=== PATIENT | female | born 1960 | race Caucasian/White ===

== ENCOUNTER 2021-03-04 14:38 | Emergency (ER) | payer BC, SELFPAY ==
--- NOTE | 2021-03-04 14:45 | DI.US_ITS ---
Exam(s) US LOWER EXTREMITY VENOUS LT EXAM: US LOWER EXTREMITY VENOUS LT CLINICAL HISTORY: pain/ hx of dvt TECHNIQUE: Left lower extremity venous ultrasound performed using grayscale, color-flow, and spectra l Doppler analysis. COMPARISON: No exams were available for comparison FINDINGS: The left common femoral, femoral and popliteal veins demonstrate normal compressibility, augmentation , and color Doppler. The posterior tibial veins are patent. There is nonocclusive thrombus seen in t he proximal greater saphenous vein 1.2 cm from the saphenofemoral junction. This may be nonacute thr ombus. There is occlusive thrombus seen in the medial calf in what appears to be the lesser saphenou s vein. This appears to be acute. There is no evidence of a Mesa cyst. The soft tissues are unrem arkable. IMPRESSION: 1. No DVT. 2. Superficial thrombophlebitis as described above. DATA REPOSITORY:
[2021-03-04 14:46] VITALS: BP 154/58; PULSE 90; RESP 18; TEMP 36.8; O2SAT 98
--- NOTE | 2021-03-04 15:06 | W.ED.GENAD ---
Discharge Plan Disposition Patient Disposition: HOME Condition: Stable Discharge Details Clinical Impression: Superficial thrombophlebitis Primary Care Provider: Marnie Vega ED Provider: Garcia Alejandre Home Meds and New Rx's Prescriptions: No Action omeprazole 20 mg capsule,delayed release(DR/EC) 20 mg PO DAILY RF: 0 Discharge Instructions Additional Instructions: Warm compress with, take ibuprofen 600 mg or a full dose aspirin every 8 hours with food for the next 5 days, warm compresses Repeat ultrasound in 1 week Return with spreading redness, fever, worsening pain Warm compresses 3 times daily for 10 to 20 minutes Should you develop increased swelling, worsening pain, shortness of breath, or if you develop any new or worsening complaints, please return to the emergency room Recheck with your primary care physician in 24 to 48 hours Discharge Data Discharge Date/Time-TO BE ENTERED AT DEPARTURE: 03/04/21 16:52 Medical Decision Making <MARIANELA Nice - Last Filed: 03/05/21 11:57> 60-year-old female, presents concerned of a left leg blood clot, reports increased driving recently. Fortunately we are able to obtain an ultrasound now, tachycardia goes home at 3 PM but able to obtain ultrasound at 2:58 PM. Will go to ultrasound first, if positive will need to evaluate further with laboratory values. Differential includes but not excluded to DVT, cellulitis, phlebitis, low suspicion for abscess given presentation. Patient denies chest pain or shortness of breath. Also denies fever. I received confirmation from cath lab tech that the test is presumptively positive however awaiting official read from radiology for extent of positive findings. Will obtain IV access, CBC, CMP, coags. At time of signout awaiting the official read of ultrasound, laboratory values, final disposition and treatment. Medical Records Medical records reviewed: Yes I reviewed the patient's medical records. <MARIANELA Pruitt - Last Filed: 03/04/21 20:35> Transfer of care from Garcia Alejandre PA-C pending official ultrasound read and diagnostic blood work V rad interpretation shows superficial thrombophlebitis Patient with diagnostic labs do not show acute pathology Patient will take aspirin or ibuprofen 4 times daily for the next 5 days. She has been scheduled for repeat ultrasound in 1 week She is given a threshold to return should she have new or worsening complaints She will apply warm compresses to the affected area Patient discharged home in stable condition with stable vital Return precautions discussed HPI <MARIANELA Nice - Last Filed: 03/05/21 11:57> General Mode of arrival: ambulatory. Date/Time Provider Initiated Documentation: 03/04/21 14:57. Limitations to Documentation: no limitations. Information obtained by: patient. HPI Narrative: This is a 60-year-old female, past medical history of GERD, DVT 7 years ago, not anticoagulated, presenting for pain and swelling of the left lower extremity, concern of DVT. Patient reports that she has been driving to and from [facility] more frequently, noticed this pain and swelling on . Potentially unrelated she states that sometime last week she was diagnosed with cellulitis to her calf placed on antibiotic, redness has gone away but the area still remains slightly firm. Unsure of the name of the antibiotic. Symptoms now are in her posterior-medial thigh. She denies chest pain, shortness of breath, trauma, fever, numbness, tingling, weakness. Upon reviewing her pharmacy, it would appear as though she was on Keflex. Related Data Home Medications Medication Instructions Recorded Confirmed omeprazole 20 mg PO DAILY 03/04/21 03/04/21 Allergies Allergy/AdvReac Type Severity Reaction Status Date / Time No Known Drug Allergies Allergy Unverified 03/04/21 14:50 General Stated Complaint: Vascular NICHOLAS: 3 Review of Systems <MARIANELA Nice - Last Filed: 03/05/21 11:57> Constitutional Constitutional: Denies fever(s) Cardiovascular Cardiovascular: Denies chest pain and Denies dyspnea Respiratory Respiratory: Denies dyspnea Musculoskeletal Musculoskeletal: Denies arthralgias, Denies numbness, Denies stiffness and Denies tingling Integumentary/Breasts Skin/Breast: Reports erythema Neurologic Neurologic: Denies numbness and Denies tingling Hematologic/Lymphatic Hematologic/Lymphatic: Denies easy bleeding and Denies easy bruising PFS <MARIANELA Nice - Last Filed: 03/05/21 11:57> Medical History Hodgkin's lymphoma, adult (04/26/13) left axilla lymph node, radiation completed 06/2013, PET negative 08/2013 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 Today's colectomy negative. Colonoscopy - MAC (06/24/17) s/p colectomy for stage II carcinoma of descending colon. Today's colectomy negative. Partial resection of colon (11/24/13) stage II carcinoma of descending colon Social History Smoking/Tobacco Use Status: Never Smoking risk assessment performed?: Yes Drug use: Never Do you feel safe at home: Yes Do you feel safe in your relationship?: Yes Exam <MARIANELA Nice - Last Filed: 03/05/21 11:57> Const General: cooperative, healthy appearing, comfortable and no acute distress Orientation: alert and awake [facility] Head: normal to inspection, normocephalic and atraumatic Eyes General: appearance normal, both eyes and all related structures Conjunctivae: conjunctivae normal Neck Neck: normal visual inspection, trachea midline and supple Resp Effort & Inspection: normal respiratory effort and able to speak in complete sentences Auscultation: clear to auscultation bilaterally Cardio Rate: regular rate Rhythm: regular rhythm GI Inspection: obesity Skin General skin exam: erythema Neuro General: patient alert, patient awake, moves all extremities and no focal motor deficits Cognition: normal cognition Speech: speech normal Gait: normal gait Motor: muscle tone normal throughout Sensory Exam: no sensory deficits noted Extrem General: full ROM, capillary refill normal and normal gait Upper/lower leg/hip images: 1. Quarter sized area of induration, there is no erythema, warmth, tenderness to palpation, fluctuance. Negative Homans' sign. Normal dorsalis pedal pulse and capillary refill 2. Approximately 5 and half centimeter diameter erythematous, warmth, tender, macular lesion. There is no drainage or central fluctuance. Skin is intact. Psych Appearance: grossly normal Mental Status: mental status grossly normal Course <MARIANELA Nice - Last Filed: 03/05/21 11:57> Vital Signs Vital signs: Vital Signs Temperature 36.8 C 03/04/21 14:46 Pulse 90 03/04/21 14:46 Respiratory Rate 18 03/04/21 14:46 Blood Pressure 154/58 H 03/04/21 14:46 Pulse Oximetry 98 03/04/21 14:46 Temperature 36.8 C 03/04/21 14:46 Temperature Source Temporal Artery Scan 03/04/21 14:46 Pulse 90 03/04/21 14:46 Respiratory Rate 18 03/04/21 14:46 Respiratory Effort 03/04/21 14:54 Blood Pressure 154/58 H 03/04/21 14:46 Blood Pressure Position Sitting 03/04/21 14:46 Pulse Oximetry 98 03/04/21 14:46
[2021-03-04 15:51] VITALS: RESP 16
--- NOTE | 2021-03-04 16:13 | DI.VRAD_ITS ---
PROCEDURE INFORMATION: Exam: US Duplex Left Lower Extremity Veins, Limited Exam date and time: 03/04/2021 2:58 PM Age: 60 years old Clinical indication: Varicose veins of lower extremities; With ulcer and inflammation; Patient HX: HX of dvt 7 years ago. Localized swelling and redness in the left medial thigh and calf which correlates with the superficial thrombus noted in the tortuous veins. TECHNIQUE: Imaging protocol: Real-time Duplex ultrasound of the Left Lower Extremity with 2-D tavera scale, color Doppler flow and spectral waveform analysis with image documentation. Limited exam focused on the left lower extremity veins. COMPARISON: No relevant prior studies available. FINDINGS: Left deep veins: Unremarkable. The common femoral, femoral, proximal profunda femoral and popliteal veins are patent without thrombus. Normal Doppler waveforms. Normal compressibility and/or augmentation response. Left superficial veins: There is intraluminal thrombus in the proximal greater saphenous vein just below the common femoral vein junction. It is relatively short segment. Flow is present. It is incompletely compressible. It is possible this is nonacute thrombus. At the medial calf level there is a serpiginous area of acute thrombus involving what appears to be the lesser saphenous vein which is completely occlusive. Soft tissues: Unremarkable. IMPRESSION: 1. No evidence for DVT. 2. Superficial thrombophlebitis as noted. Greater saphenous level may be nonacute. Calf involvement is likely acute. Case discussed with investigation division sergeant. Dictated and Authenticated by: Beatrice De Souza MD. Ordering:SAMANTHA Zelaya MD
[2021-03-04 16:27] LABS: Abs Immature Grans 0.04 10^3/uL (0.0-0.06); Absolute Basophil Count 0.09 10^3/uL (0.0-0.2); Absolute Eosinophil Count 0.21 10^3/uL (0.0-0.7); Absolute Lymphocyte Count 2.05 10^3/uL (1.2-3.4); Absolute Monocyte Count 0.95 10^3/uL (0.1-0.8); Absolute Neutrophil Count 7.01 10^3/uL (1.2-6.7); Basophils % 0.9; HCT 42.2 % (36.0-46.0); HGB 13.7 g/dL (11.2-15.7); Immature Grans % 0.4; Lymphocytes % 19.8; MCH 29.1 pg (27.0-33.0); MCHC 32.5 % (32.0-36.0); MCV 89.8 fL (80-95); MPV 12.2 fL (8.0-11.0); Monocytes % 9.2; Neutrophils % 67.7; Nucleated RBC 0 %; Platelet Count 207 10^3/uL (130-400); RDW 13.2 % (11.7-14.6); RDW-SD 43.6 fL; WBC 10.35 10^3/uL (4.4-10.8)
[2021-03-04 16:34] LABS: ALT 28 U/L (14-59); AST 16 U/L (15-37); Alkaline Phosphatase 103 U/L (46-116); Anion Gap 10.4 mmol/L (3-11); BUN 15 mg/dL (7-18); Bilirubin, Total 0.4 mg/dL (0.2-1.0); CO2 26.6 mmol/L (21.0-32.0); CREATININE 1.1 mg/dL (0.55-1.02); Calcium 9.5 mg/dL (8.5-10.1); Chloride 103 mmol/L (98-107); Estimated GFR 50.33 (mL/min/1.73m2); Glucose 87 mg/dL (74-106); Sodium 140 mmol/L (136-145); Total Protein 8.4 g/dL (6.4-8.2)
[2021-03-04 16:35] LABS: INR 0.9 (0.9-1.1); PTT Activated 22.5 sec (21.0-27.5); Prothrombin Time 9.5 sec (9.3-11.0)
--- NOTE | 2021-03-04 16:54 | NUR.NOTE ---
Nursing Note: Referral faxed to DI for outpatient US DVT LLE to be done in one week with follow up with PCP. Hien Cole
== END 2021-03-04 16:52 | disposition home or self-care (01) ==
PROVIDERS: Emergency Provider Physician Assistant; PCP Nurse Practitioner Family
DX: I80.02 Phlebitis and thrombophlebitis of superficial vessels of left lower extremity (principal)
CPT/HCPCS: 80053; 99284; 85025; 85610; 85730; 93971; 99283

== ENCOUNTER 2022-09-19 07:41 | Day surgery (SDC) | payer BC, SELFPAY ==
--- NOTE | 2022-09-19 08:08 | W.COLOREPORT ---
Date of service: 09/19/22 Time of Service: 09:15 Colonoscopy Report Procedure Description: Procedures performed: 1. Colonoscopy 2. Hot snare polypectomy x1 3. Cold forceps polypectomy x2 Preoperative diagnosis: Surveillance colonoscopy, history of colon cancer, family history Postoperative diagnosis: Colon polyps Surgeon: Alan Morris Anesthesia: Jude Indication for procedure: 62-year-old woman had sigmoid colon cancer almost 10 years ago. She underwent curative sigmoid resection. She has had 2 colonoscopies since both normal. She is due for surveillance and is not having any symptoms. Separately, her daughter has recently been diagnosed with stage IV colon cancer Findings: Normal terminal ileum.? In the transverse colon a 5-7 mm sessile polyp was removed with hot snare technique. In the descending colon two small, separate 2-3 mm sessile polyps were removed with cold forceps technique and sent together. The anastomosis was identified and is patent without any evidence of stricture or colitis. No polyps distal to the anastomosis. Surveillance/follow-up recommendations: 3 years (sooner if any dysplasia present in the specimens on pathology though this is not suspected) Complications: None Blood loss: Minimal Prep: Excellent Specimens: Yes Procedure in detail: Written consent was obtained from the patient who was in agreement with the risks, benefits and indications of the procedure.? We went to the endoscopy suite and laid the patient in left lateral decubitus position.? Anesthesia was administered which was tolerated well.? A timeout was performed and when we are all in agreement we began the procedure. Digital rectal exam and visual examination was performed and within normal limits.? A well?lubricated colonoscope was advanced without difficulty all the way to the cecum identified by the ileocecal valve, and triangular folds and appendiceal orifice.? Terminal ileum was intubated and normal.? It was then slowly withdrawn.?? Retroflexion was performed in the rectum.? The findings/interventions are noted above. The scope was then removed and the patient tolerated the procedure well and was then taken back to the PACU in hemodynamically stable condition.
[2022-09-19 08:14] VITALS: BP 166/71; PULSE 87; RESP 16; TEMP 36.2; O2SAT 100
[2022-09-19] MEDS: Lactated Ringers 1,000 ML 80 ML IV (08:25)
--- NOTE | 2022-09-19 08:40 | W.ANESPRE ---
General Info Date of Service Date Performed: 09/19/22 Height: 5 ft 1 in Weight: 88.4 kg Body Mass Index (BMI): 36.8 Surgical Procedure: Operation Date: 09/19/22 09:05 Proposed Procedure Side Surgeon p Shoaib Morris MD Meds Allergies and Home Medications Allergies Allergy/AdvReac Type Severity Reaction Status Date / Time No Known Drug Allergies Allergy Unverified 09/19/22 08:12 Home Medication Medication Instructions Recorded omeprazole 20 mg capsule,delayed 20 mg PO DAILY 03/04/21 release bisacodyl 5 mg tablet,delayed 5 mg PO ONCE #4 tabs 09/06/22 release (Dulcolax (bisacodyl)) polyethylene glycol 3350 17 17 g PO ONCE #238 grams 09/06/22 gram/dose oral powder Current Visit Medications: Current Medications Generic Name Dose Route Start Last Admin Trade Name Freq PRN Reason Stop Dose Admin Ringer's Solution 1,000 mls @ 80 mls/hr 09/19/22 06:00 09/19/22 08:25 IV 10/18/22 23:59 80 mls/hr INFUSION LORNE Administration IV Miscellaneous Supplies 1 each 09/19/22 06:00 Iv Access IV 10/18/22 23:59 DIRECTED LORNE Sodium Chloride 0 ml 09/19/22 06:00 Normal Saline Flush 10 Ml Syr IV 10/18/22 23:59 PRN PRN Sodium Chloride 0 ml 09/19/22 06:00 Normal Saline 10 Ml Vial IJ 10/18/22 23:59 DIRECTED PRN Sterile Water 0 ml 09/19/22 06:00 Water,Injection,Sterile 10 Ml Vial IJ 10/18/22 23:59 DIRECTED PRN PFSH Active Problems Active Problems: Problem Status Onset Code Cancer of sigmoid colon 11/24/13 C18.7 Status post sigmoid resection, open 11/24/13 Superficial thrombophlebitis I80.9 Screening for colon cancer Z12.11 Family history of colon cancer Z80.0 Medical History Medical History GERD (gastroesophageal reflux disease) Hodgkin's lymphoma, adult (04/26/13) left axilla lymph node, radiation completed 06/2013, PET negative 08/2013 Malignant neoplasm of colon (11/23/13) 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 Today's colectomy negative. Colonoscopy - MAC (06/24/17) s/p colectomy for stage II carcinoma of descending colon. Today's colectomy negative. Partial resection of colon (11/24/13) stage II carcinoma of descending colon Tobacco Smoking/Tobacco Use Status: Never Alcohol Alcohol Intake: never Substance Use Substance use: Never Substance use type: does not use Vital Signs and Lab Results Vital Signs Most Recent Vital Signs in EMR: Most Recent Vital Signs Temp Pulse Resp BP Pulse Ox 36.2 C L 87 16 166/71 H 100 09/19/22 08:14 09/19/22 08:14 09/19/22 08:14 09/19/22 08:14 09/19/22 08:14 Lab Results Blood Type / Crossmatch: No Data to Display Complete Blood Count: No Data to Display Complete Metabolic Panel: No Data to Display Liver Function Panel: No Data to Display Coagulation Panel: No Data to Display Cardiac Panel: No Data to Display Arterial Blood Gas: No Data to Display Venous Blood Gas: No Data to Display Pancreas Panel: No Data to Display Thyroid Panel: No Data to Display Infectious Disease: No Data to Display Blood Cultures: No Data to Display Toxicology Panel: No Data to Display Anesthesia Assessment and Plan Anesthesia History Personal History: No History of Anesthesia Complications Family History: No Family History of Anesthesia Complications Exercise Tolerance Exercise Tolerance: Metabolic Equivalents>4 Pertinent Negatives Pertinent Negatives: No Symptoms of GERD Cardiac & Pulmonary Exam Cardiac Exam: Normal S1/S2 Heart Sounds Pulmonary Exam: Clear Bilateral Breath Sounds Implantable Cardiac Device Does patient have a Pacemaker or an ICD?: No Airway Exam Known Difficult Airway: No Mallampati Class: 3 Mouth Opening: Normal (> 3cm) Thyromental Distance: Greater than 3 cm Neck Range of Motion: Full ROM Neck Circumference: Normal Teeth Condition: Normal Dentition ASA Classification ASA Score: ASA 2 Emergency Case?: No NPO Status NPO Status: NPO Clears >2 hours, Solids >8 hours Anesthesia Plan Resuscitation Status: Full Code Anesthesia Technique: General Anesthesia Airway Planned: Natural Airway Monitors Used: Standard Monitors
[2022-09-19 08:43] VITALS: BMI 36.8
--- NOTE | 2022-09-19 09:09 | BOWEL_PTH ---
PATIENT: Magui Skaggs LOC: [facility] U#:[id number] AGE/SX: 62/F ROOM: RE09/19/[address]: Jay Morris : 1960 BED: DIS: 09/19/2022 SPEC #: [id number] RECD: 09/19/22 12:35 STATUS: WINNIE RE #: [id number] TORITO: 09/19/22 09:[address]: Jay Morris DEPT: Surgical Specimen RECD BY: Jany Smalls ENTERED: 09/19/22 12:37 SP TYPE: Bowel OTHR DR: Nona Jennings Tissues: 1 - BIOPSY BOWEL 2 - BIOPSY BOWEL Procedures: GROSS AND MICRO LEVEL 4 Comments: [id number]
[2022-09-19 09:21] VITALS: BP 115/59; PULSE 79; RESP 16; TEMP 36.1; O2SAT 100
[2022-09-19 09:49] VITALS: BP 123/67; PULSE 72; RESP 16; TEMP 36.6; O2SAT 100
--- NOTE | 2022-09-19 10:30 | W.ANESPOSTOP ---
Postoperative Evaluation Date, Time and Location Date Performed: 09/19/22 Time Performed: 10:30 Patient Location: Day Surgery Unit Vital Signs Most Recent Imported Vital Signs: Most Recent Vital Signs Temp Pulse Resp BP Pulse Ox 36.6 C 72 16 123/67 100 09/19/22 09:49 09/19/22 09:49 09/19/22 09:49 09/19/22 09:49 09/19/22 09:49 Pain Score Most Recent Pain Score: Most Recent Pain Score Pain Level 0 09/19/22 09:49 Assessment Mental Status: Awake (Alert & Oriented to Patient Baseline) Airway and Respiratory Function: Patent airway with normal (patient baseline) respiratory exam Cardiovascular Function: Hemodynamically Stable Hydration Status: Adequately Hydrated Nausea & Vomiting: No Nausea or Vomiting Pain: Pt. Denies Any Pain Peripheral Nerve Block: Patient did not receive a nerve block
== END 2022-09-19 09:59 | disposition home or self-care (01) ==
PROVIDERS: PCP Nurse Practitioner; Visit Provider Student in an Organized Health Care Education/Training Program
PROC: 0DJD8ZZ Inspection of Lower Intestinal Tract, Via Natural or Artificial Opening Endoscopic (ICD-10-PCS; CPT 45378; principal; 2022-09-19 09:00)
DX: Z12.11 Encounter for screening for malignant neoplasm of colon (principal); K63.5 Polyp of colon; Z85.038 Personal history of other malignant neoplasm of large intestine; Z80.0 Family history of malignant neoplasm of digestive organs; Z98.0 Intestinal bypass and anastomosis status; Z90.49 Acquired absence of other specified parts of digestive tract
CPT/HCPCS: 45385; 45380; 88305

== ENCOUNTER 2024-12-16 10:45 | Outpatient (CLI) | payer BC, SELFPAY ==
--- NOTE | 2024-12-16 10:15 | DI.RAD_ITS ---
Exam(s) XR KNEE RT 3V AP,LAT,LYNETTE EXAM: XR KNEE RT 3V AP,LAT,LYNETTE CLINICAL HISTORY: evaluation of knee pain. TECHNIQUE: 2D digital imaging was performed of the right knee. Three views obtained. Merchant, AP an d lateral views were obtained. COMPARISON: No exams were available for comparison FINDINGS: BONES: No acute fracture is present. No bony destructive lesion is seen. JOINTS: There is mild joint space narrowing and spurring in the medial femoral tibial joint. The art icular surfaces are otherwise well maintained. No joint effusion is seen. SOFT TISSUE: Normal. IMPRESSION: Mild degenerative changes in the right knee. DATA REPOSITORY: RADIATION DOSE DELIVERED:
== END 2024-12-16 10:46 | disposition home or self-care (01) ==
LOC: DIORS 10:45
PROVIDERS: PCP Nurse Practitioner; Visit Provider Student in an Organized Health Care Education/Training Program
DX: M25.561 Pain in right knee (principal); M17.11 Unilateral primary osteoarthritis, right knee
CPT/HCPCS: 73562

== ENCOUNTER 2025-07-30 13:01 | Outpatient (REF) | payer BC, SELFPAY ==
[2025-07-30 18:12] LABS: Hemoglobin A1C 5.5 % (<5.7)
[2025-07-30 18:20] LABS: ALT 56 U/L (10-49); AST 41 U/L (<34); Albumin 4.3 g/dL (3.2-5.0); Alkaline Phosphatase 90 U/L (46-116); Anion Gap 10.2 mmol/L (3-11); BUN 21 mg/dL (9-23); Bilirubin, Total 0.30 mg/dL (0.2-1.2); CO2 24.8 mmol/L (20.0-31.0); Calcium 9.2 mg/dL (8.3-10.6); Chloride 108 mmol/L (98-107); Glucose 84 mg/dL (74-106); Potassium 4.9 mmol/L (3.5-5.1); Sodium 143 mmol/L (136-145); Total Protein 7.1 g/dL (5.7-8.2)
[2025-08-03 19:42] LABS: Hepatitis A Antibody IgM Negative (Negative); Hepatitis C Ab w Rflx HCV PCR Negative (Negative)
== END 2025-07-30 13:02 | disposition home or self-care (01) ==
LOC: NCHCN 13:01
PROVIDERS: PCP Nurse Practitioner; Visit Provider Family Medicine
DX: E66.01 Morbid (severe) obesity due to excess calories (principal); R79.89 Other specified abnormal findings of blood chemistry
CPT/HCPCS: 80053; 86704; 86709; 86803; 87340; 83036